=== PATIENT | male | born 1975 | race Caucasian/White ===

== ENCOUNTER 2016-11-27 01:13 | Emergency (ER) | payer BC ==
[~2016-11-27] VITALS: Ht 185.4 cm; Wt 135.3 kg
[~2016-11-27 01:13] MED LIST: ANAPROX DS550 M1 PO; PERCOCET 7.51 TABLET PO
[2016-11-27 02:03] LABS: HEMATOCRIT 45.8 % (38.0-50.0); MCHC 33.8 G/DL (30.0-36.0); MCV 88.6 FL (86-99); MEAN PLAT.VOLUME 10.1 uM^3 (9.0-12.4); PLATELET COUNT 274 K/uL (156-360); RBC DIS.WIDTH-CV 12.4 % (11.8-14.6); RBC DIS.WIDTH-SD 40.7 % (39-53); RED BLOOD COUNT 5.17 M/uL (4.00-5.50); WHITE BLOOD COUNT 8.7 K/uL (4.1-10.2)
[2016-11-27 02:12] LABS: CHLORIDE 109 mEq/L (99-109); POTASSIUM 4.1 mEq/L (3.7-5.4); SODIUM 141 mEq/L (136-147)
[2016-11-27 02:13] LABS: GLUCOSE 139 mg/dL (70-99)
[2016-11-27 02:15] LABS: ANION GAP 9 MEQ/L (2-14)
[2016-11-27 02:17] LABS: GFR ESTIMATE (CALCULATED) > 59 mL/min/
[2016-11-27 02:18] LABS: UREA NITROGEN (BUN) 16 mg/dL (9-23)
[2016-11-27 02:24] LABS: TROP-I INTERPRETATION NEGATIVE; TROPONIN-I < 0.01 ng/mL (0.0-0.30)
[2016-11-27 02:41] LABS: TOTAL BILIRUBIN 0.3 mg/dL (0.0-1.0)
[2016-11-27 02:42] LABS: ALKALINE PHOSPHATASE 51 IU/L (3-129)
[2016-11-27 02:45] LABS: DIRECT BILIRUBIN 0.1 mg/dL (0.0-0.3)
[2016-11-27 02:46] LABS: LIPASE 42 U/L (1.0-51.0)
[2016-11-27] MEDS ORDERED: ZOFRAN4 MG PO (04:03)
[2016-11-27 04:14] VITALS: BP 136/90
== END 2016-11-27 04:15 | disposition home or self-care (01) ==
LOC: EME 01:13
DX: K80.20 Calculus of gallbladder without cholecystitis without obstruction (principal); R10.10 Upper abdominal pain, unspecified; R11.2 Nausea with vomiting, unspecified; F17.200 Nicotine dependence, unspecified, uncomplicated
CPT/HCPCS: 71020; 76705; 80048; 80076; 81003; 83690; 84484; 85027; 93005; 99281; 99285; J1885; J2405; J7030

== ENCOUNTER 2017-01-05 09:48 | Day surgery (SDC) | payer BC ==
[~2017-01-05] VITALS: Ht 185.4 cm; Wt 122.7 kg
[~2017-01-05 09:48] MED LIST changes: +ZOFRAN4 MG PO
[2017-01-05 10:21] VITALS: BP 131/77
[2017-01-05] MEDS ORDERED: NORCO 5/3251 TABLET PO (13:47)
[2017-01-05 15:03] VITALS: BP 125/84
[2017-01-05 16:05] VITALS: BP 136/83
== END 2017-01-05 16:13 | disposition home or self-care (01) ==
LOC: SDC 09:48
PROC: 0FT44ZZ Resection of Gallbladder, Percutaneous Endoscopic Approach (ICD-10-PCS; principal; 2017-01-05)
DX: K80.10 Calculus of gallbladder with chronic cholecystitis without obstruction (principal); F17.210 Nicotine dependence, cigarettes, uncomplicated; Z80.3 Family history of malignant neoplasm of breast; Z80.42 Family history of malignant neoplasm of prostate; Z83.3 Family history of diabetes mellitus; R94.31 Abnormal electrocardiogram [ECG] [EKG]
CPT/HCPCS: 88304; J0131; J0330; J2250; J2405; J2710; J3010

== ENCOUNTER 2017-08-30 03:43 | Emergency (ER) | payer BC ==
[~2017-08-30] VITALS: Ht 185.4 cm; Wt 135.4 kg
[~2017-08-30 03:43] MED LIST changes: +NORCO 5/3251 TABLET PO
[2017-08-30] MEDS ORDERED: ROBAXIN750 MG PO (04:17)
[2017-08-30] MEDS ORDERED: NAPROSYN500 MG PO (04:17)
[2017-08-30 05:09] VITALS: BP 142/91
== END 2017-08-30 05:10 | disposition home or self-care (01) ==
LOC: EME 03:43
DX: S46.912A Strain of unspecified muscle, fascia and tendon at shoulder and upper arm level, left arm, initial encounter (principal); X50.9XXA Other and unspecified overexertion or strenuous movements or postures, initial encounter; Y93.89 Activity, other specified; Y92.838 Other recreation area as the place of occurrence of the external cause
CPT/HCPCS: 99281; 99283; S0020